=== PATIENT | male | born 1990 | race Caucasian/White ===

== ENCOUNTER 2018-11-04 14:57 | Emergency (ER) | payer SELFPAY ==
[2018-11-04 15:38] VITALS: BP 132/71
--- NOTE | 2018-11-04 16:19 | UC ---
Complaint Male HPI - HPI Summary HPI Summary: 28-year-old male presents with complaints of burning with urination for the past week. States he is in a long-term monogamous relationship with a female partner. Denies fever, chills, abdominal pain, back or flank pain, frequency, urgency, hematuria, genital lesions, penile discharge, testicular pain or swelling. - History of Current Complaint Chief Complaint: UCGU Stated Complaint: BLADDER PAIN Time Seen by Provider: 11/04/18 16:04 Hx Obtained From: Patient Pain Intensity: 0 - Allergies/Home Medications Allergies/Adverse Reactions: Allergies Allergy/AdvReac Type Severity Reaction Status Date / Time amoxicillin Allergy Unknown Verified 11/04/18 15:38 Reaction Details Home Medications: Home Medications NK [No Home Medications Reported] 11/04/18 [History Confirmed 11/04/18] PMH/Surg Hx/FS Hx/Imm Hx Previously Healthy: Yes - Denies significant PMH - Surgical History Surgical History: None - Family History Known Family History: Positive: Non-Contributory - Social History Occupation: Employed Full-time Lives: Alone Alcohol Use: Rare Substance Use Type: None Smoking Status (MU): Light Every Day Tobacco Smoker Review of Systems All Other Systems Reviewed And Are Negative: Yes Constitutional: Negative: Fever, Chills Respiratory: Positive: Negative Cardiovascular: Positive: Negative Gastrointestinal: Negative: Abdominal Pain, Vomiting, Nausea Genitourinary: Positive: Dysuria. Negative: Hematuria, Frequency, Urgency, Vaginal/Penile Discharge, Ulceration/Lesion Musculoskeletal: Positive: Negative Neurological: Positive: Negative Is Patient Immunocompromised?: No Physical Exam - Summary Physical Exam Summary: GENERAL APPEARANCE: Well developed, well nourished, alert and cooperative, and appears to be in no acute distress. CARDIAC: Normal S1 and S2. No S3, S4 or murmurs. Rhythm is regular. There is no peripheral edema, cyanosis or pallor. Extremities are warm and well perfused. Capillary refill is less than 2 seconds. Peripheral pulses intact. LUNGS: Clear to auscultation without rales, rhonchi, wheezing or diminished breath sounds. ABDOMEN: Positive bowel sounds. Soft, nondistended, nontender. No guarding or rebound. No masses or hepatosplenomegally. No CVA tenderness. GENITOURINARY: Normal penis without lesions, ulcerations, or drainage. Testicles smooth, non-tender, and without swelling. MUSKULOSKELETAL: ROM intact to all extremities. No joint erythema or tenderness. Normal muscular development. Normal gait. SKIN: Skin normal color, texture and turgor with no lesions or eruptions. Triage Information Reviewed: Yes Vital Signs: Initial Vital Signs Temp 99.8 F 11/04/18 15:32 Pulse 93 11/04/18 15:32 Resp 16 11/04/18 15:32 BP 132/71 11/04/18 15:32 Pulse Ox 100 11/04/18 15:32 Vital Signs Reviewed: Yes Complaint Male Course/Dx - Course Course Of Treatment: 28-year-old male presents with complaints of burning with urination for the past week. States he is in a long-term monogamous relationship with a female partner. Denies fever, chills, abdominal pain, back or flank pain, frequency, urgency, hematuria, genital lesions, penile discharge, testicular pain or swelling. Afebrile. Mildly hypertensive/signs stable. Patient's exam was overall unremarkable. [id number] urinalysis showed trace ketones, trace protein, and was otherwise normal. Urine culture is pending. The urine was also sent for testing for gonorrhea and chlamydia. Patient declined any further STI testing at this time. We discussed that based on his history and physical that he likely has a nonspecific urethritis and we discussed possible causes for a chemical urethritis. With a normal urine test and low risk factors for STI treatment was deferred at this time pending the urine culture and STI testing. Patient is to follow-up with urology in 1 week if symptoms are not improving. Anticipatory guidance and warning symptoms are reviewed with the patient. Verbalizes understanding and agrees with plan of care. - Differential Dx/Diagnosis Differential Diagnosis/HQI/PQRI: Epididymitis, Urinary Tract Infection, Other - STI Provider Diagnosis: Urethritis Discharge - Sign-Out/Discharge Documenting (check all that apply): Patient Departure All imaging exams completed and their final reports reviewed: No Studies - Discharge Plan Condition: Stable Disposition: HOME Patient Education Materials: Nonspecific Urethritis in Men (ED) Referrals: No Primary Care Phys,NOPCP [Primary Care Provider] - Raymond Young MD [Medical Doctor] - 7 Days (If no improvement in symptoms. Call for appointment.) [facility] [place] [facility] [place]Outside] Additional Instructions: Based on your symptoms you have a condition called urethritis, which is inflammation of the urethra. The urine test was performed in the clinic today did not show any evidence of infection. We will send a urine culture as well as test the urine for possible gonorrhea or chlamydia to rule out an infectious process. We will contact you if any of these tests are positive injury require treatment. Be sure to drink plenty of fluids. Follow-up with urology in 5-7 days if symptoms are not improving. Call for an appointment. I have also given you the contact information for the [facility] physician referral service if you need assistance with establishing with a primary care provider. Seek immediate medical attention in the emergency room if you develop a fever greater than 100.5 F, have severe abdominal pain, persistent vomiting, you are unable to urinate, have any testicular pain or swelling, or blood in your urine , or any worsening of symptoms. - Billing Disposition and Condition Condition: STABLE Disposition: Home - Attestation Statements Provider Attestation: This patient was not examined by me. I was available for consult. MADAI
[2018-11-05 13:46] LABS: Chlamydia trachomatis NAA Negative (Negative); Neisseria gonorrhoeae (GC) NAA Negative (Negative)
== END 2018-11-04 16:42 | disposition home or self-care (01) ==
LOC: UCEAST 14:57
DX: N34.2 Other urethritis (principal); F17.210 Nicotine dependence, cigarettes, uncomplicated
CPT/HCPCS: 81003; 87086; 87491; 87591; 99201; G0463